=== PATIENT | male | born 1990 | race Caucasian/White ===

== ENCOUNTER 2016-06-08 09:59 | Emergency (ER) | payer OTHER ==
[2016-06-08 10:21] VITALS: BP 115/60; PULSE 66; TEMP 98.8; BMI 32.5
--- NOTE | 2016-06-08 11:36 | PDOC ---
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 Past History - Past Medical History Allergies/Adverse Reactions: Allergies Allergy/AdvReac Type Severity Reaction Status Date / Time No Known Allergies Allergy Verified 06/08/16 10:17 Home Medications: Ambulatory Orders NK [No Known Home Medication] 06/08/16 Other medical history: DENIES. - Family Disease History Comment:: 06/08/16 11:31 none - Psycho/Social/Smoking Cessation Hx Suicidal Ideation: No Smoking History: Never smoked Review of Systems - Review of Systems Able to Perform ROS?: Yes Is the patient limited Uzbek proficient: No Constitutional: No: Symptoms Reported HEENTM: No: Symptoms Reported Respiratory: No: Symptoms reported Cardiac (ROS): No: Symptoms Reported ABD/GI: No: Symptoms Reported : No: Symptoms Reported Musculoskeletal: No: Symptoms Reported Integumentary: Yes: See HPI *Physical Exam - Vital Signs Last Vital Signs Temp Pulse Resp BP Pulse Ox 98.8 F 66 19 115/60 99 06/08/16 10:17 06/08/16 10:17 06/08/16 10:17 06/08/16 10:17 06/08/16 10:17 - Physical Exam General Appearance: Yes: Nourished, Appropriately Dressed HEENT: positive: EOMI, CRISTA Respiratory/Chest: positive: Lungs Clear, Normal Breath Sounds Extremity: positive: Normal Capillary Refill, Normal Range of Motion, Other ( left thumb dorsal side over the PIP joint 2.0cm linear laceration) Integumentary: positive: Normal Color, Dry, Warm Neurologic: positive: Fully Oriented, Alert, Normal Mood/Affect, Normal Response , Motor Strength 5/5 Procedures - Laceration/Wound Repair Left Dorsal 2nd digit Finger Wound Length: to 2.5 cm Wound Explored: clean Wound's Depth, Shape: linear Irrigated w/ Saline: Yes Betadine Prep: Yes Anesthesia: 1% Lidocaine Suture Size/Type: 5:0, nylon Number of Sutures: 5 Sterile Dressing Applied: Yes Progress: 06/08/16 11:37 sutures placed edges well approximated tolerated well nv intact Medical Decision Making - Medical Decision Making 06/08/16 11:37 cc: thumb laceration nv intact, 5/5 strength will suture closed tetanus is UTD split placed *DC/Admit/Observation/Transfer Diagnosis at time of Disposition: Laceration - Discharge Dispostion Disposition: HOME Condition at time of disposition: Improved - Patient Instructions Printed Discharge Instructions: DI for Laceration Repair Additional Instructions: keep dry keep the splint in place at all times cover with plastic bag to bathe do not get wet remove the dressing in 72hrs then apply a thin layer of ointment (the small packet we gave you) over the stitches and re-dress with a clean bandaid and re- apply the splint use splint for 3-4 days return to ER in 10 days for suture removal
== END 2016-06-08 12:43 | disposition home or self-care (01) ==
LOC: JERFT 09:59
PROC: 0JQK0ZZ Repair Left Hand Subcutaneous Tissue and Fascia, Open Approach (ICD-10-PCS; principal; 2016-06-08)
PROC: 2W3KX1Z Immobilization of Left Finger using Splint (ICD-10-PCS; 2016-06-08)
DX: S61.012A Laceration without foreign body of left thumb without damage to nail, initial encounter (principal); W31.82XA Contact with other commercial machinery, initial encounter; Y93.G1 Activity, food preparation and clean up; Y92.218 Other school as the place of occurrence of the external cause; Y99.0 Civilian activity done for income or pay
CPT/HCPCS: 73140-TC-LT; 99281-25

== ENCOUNTER 2016-06-16 14:29 | Emergency (ER) | payer OTHER ==
[2016-06-16 14:33] VITALS: BP 133/57; PULSE 69; TEMP 97.7; BMI 31.7
--- NOTE | 2016-06-16 16:18 | PDOC ---
Suture Removal/Wound Check HPI - History of Present Illness Chief Complaint: Suture/Staple Removal(Here) Stated Complaint: SUTURES REMOVAL Time Seen by Provider: 06/16/16 15:38 History Source: Yes: Patient Exam Limitations: Yes: No Limitations Treated at: [facility] [place] [facility] Date of Last ED visit: 06/08/16 - Previous ED Treatment Type of procedure performed on last visit: Yes: Laceration Repair (left thumb repair with sutures) Past History - Past Medical History Allergies/Adverse Reactions: Allergies No Known Allergies Allergy (Verified 06/16/16 14:30) Home Medications: Ambulatory Orders NK [No Known Home Medication] 06/08/16 General: Yes: no pertinent history Surgical History: Yes: No Surgical History - Family History Significant Family History: Yes: no pertinent family hx - Social History Smoking Status: Never smoked Suture Removal/Wound Check PE - Physical Exam Laceration/Wound Check Symptoms: reports: None Comments: 06/16/16 16:21 left thumb sutures placed 8 days ago well healed, edges are not completely approximated at this time as the laceration is over the joint space, I would give 3-4 more days Current Severity Level: None Maximum Severity Level: None Pain Localization: None Location of Laceration/Wound: left: Finger (thumb) *Review of Systems - Review of Systems Able to Perform ROS?: Yes Integumentary: Yes: Symptoms Reported Medical Decision Making - Medical Decision Making 06/16/16 16:22 cc: wound check pt needs 3-4 more days to heal the wound pt will return as discussed pt is to keep the wound dry *DC/Admit/Observation/Transfer Diagnosis at time of Disposition: Visit for wound check - Discharge Dispostion Disposition: HOME Condition at time of disposition: Good - Patient Instructions Additional Instructions: keep dry cover with bandaid while sleeping and using hands at work return in 3-4 days for suture removal
== END 2016-06-16 16:31 | disposition home or self-care (01) ==
LOC: JERFT 14:29
DX: Z48.02 Encounter for removal of sutures (principal)
CPT/HCPCS: 99281-25

== ENCOUNTER 2016-06-19 14:21 | Emergency (ER) | payer OTHER ==
[2016-06-19 14:26] VITALS: BP 118/62; PULSE 78; TEMP 98.2; BMI 31.7
--- NOTE | 2016-06-19 15:45 | PDOC ---
Suture Removal/Wound Check HPI - History of Present Illness Chief Complaint: Suture/Staple Removal(Here) Stated Complaint: SUTURE REMOVAL Time Seen by Provider: 06/19/16 14:55 History Source: Yes: Patient Exam Limitations: Yes: No Limitations Treated at: [facility] ED Date of Last ED visit: 06/08/16 - Previous ED Treatment Type of procedure performed on last visit: Yes: Laceration Repair Antibiotics Prescribed: No Past History - Travel Traveled outside of the country in the last 30 days: No Close contact w/someone who was outside of country & ill: No - Past Medical History Allergies/Adverse Reactions: Allergies No Known Allergies Allergy (Verified 06/19/16 14:24) Home Medications: Ambulatory Orders NK [No Known Home Medication] 06/08/16 General: Yes: no pertinent history Surgical History: Yes: No Surgical History - Social History Smoking Status: Never smoked Suture Removal/Wound Check PE - Physical Exam Laceration/Wound Check Symptoms: reports: None Current Severity Level: None Maximum Severity Level: None Pain Localization: None Location of Laceration/Wound: left: Hand (poorly approximated suture line to left thumb at IP joint with 4 intact sutures. Redness, swelling or exudate however patient complains of tingling to the distal aspect of wound that is consistent with the previous injury and laceration.) *Review of Systems - Review of Systems Able to Perform ROS?: Yes Constitutional: Yes: Symptoms Reported, Loss of Appetite, Malaise HEENTM: No: Symptoms Reported Musculoskeletal: Yes: Symptoms Reported, See HPI, Other All Other Systems: Reviewed and Negative Medical Decision Making - Medical Decision Making 06/19/16 15:46 4 sutures removed from suture line, Steri-Strips were applied to allow for further secondary intention healing and finger splint. *DC/Admit/Observation/Transfer Diagnosis at time of Disposition: Removal of suture - Discharge Dispostion Disposition: HOME Condition at time of disposition: Stable Admit: No
== END 2016-06-19 15:41 | disposition home or self-care (01) ==
LOC: JERFT 14:21
DX: Z48.02 Encounter for removal of sutures (principal)
CPT/HCPCS: 99281-25